=== PATIENT | female | born 2000 | race African-American/Black ===

== ENCOUNTER 2023-02-11 08:08 | Emergency (ER) | payer OTHER ==
[~2023-02-11] VITALS: Ht 172.7 cm; Wt 60.0 kg
[2023-02-11 09:50] VITALS: BP 107/68
== END 2023-02-11 10:03 | disposition home or self-care (01) ==
LOC: ER 08:20
DX: R56.9 Unspecified convulsions (principal)
CPT/HCPCS: 99283